=== PATIENT | male | born 1960 | race Caucasian/White ===

== ENCOUNTER → 2017-07-20 | Outpatient (CLI) | payer OTHER ==
[~2017-07-20] MED LIST: CHOL100010 PO; FURO-85 PO; GABA-113 PO; METO25TA56 PO; OMEG10007 PO; OXYC-106 PO
[2017-07-20 13:19] LABS: BASO % 0.2 %; BASO ABS # 0.01 K/uL (0-0.2); EOS % 3.1 %; HEMATOCRIT 44.3 % (42-52); HEMOGLOBIN 14.9 g/dL (14.0-18.0); IG# 0.02 K/uL (0.00-0.02); LYMPH % 35.2 %; LYMPH ABS # 2.25 K/uL (1.2-3.4); MEAN CELL VOLUME 85.7 fL (80-100); MEAN CORPUSCULAR HEMOGLOBIN 28.8 pg (25-34); MEAN CORPUSCULAR HGB CONC 33.6 g/dl (32-36); MEAN PLATELET VOLUME 10.1 fL (7.4-10.4); MONO % 12.5 %; NEUT % 48.7 %; NEUT ABS # 3.12 K/uL (1.4-6.5); PLATELET COUNT 199 K/uL (130-400); RED CELL DISTRIBUTION WIDTH CV 12.7 % (11.5-14.5); RED CELL DISTRIBUTION WIDTH SD 39.7 fL (36.4-46.3)
[2017-07-20 13:54] LABS: BLOOD UREA NITROGEN 17 mg/dl (7-18); CALCIUM 9.6 mg/dl (8.5-10.1); CARBON DIOXIDE 29 mmol/L (21-32); CREATININE 0.89 mg/dl (0.60-1.40); GLUCOSE 93 mg/dl (70-99); POTASSIUM 4.5 mmol/L (3.5-5.1); SODIUM 138 mmol/L (136-145)
== END | disposition home or self-care (01) ==
LOC: C.CPL 12:26
PROVIDERS: ATTEND Orthopaedic Surgery
DX: M25.511 Pain in right shoulder (principal); Z01.812 Encounter for preprocedural laboratory examination; Z01.810 Encounter for preprocedural cardiovascular examination

== ENCOUNTER → 2017-08-09 | Day surgery (SDC) | payer OTHER ==
[2017-07-22 15:55] VITALS: Ht 188 cm; Wt 127.3 kg
[~2017-08-09] VITALS: Ht 188 cm; Wt 127.3 kg
[~2017-08-09] MED LIST changes: +ATROPINE SULFATE 0.1 MG/ML 5ML SYR IV PRN; +BUPIVACAINE 0.25% 30 ML VIAL ONE; +CEFAZOLIN 3000MG IV PUSH 22.5 ML IV SCH; +EpHEDrine SULFATE INJ 50 MG/ML AMP IV PRN; +EpHEDrine SULFATE INJ 50 MG/ML AMP ONE; +EpINEphrine INJ 1MG/ML AMP 1 MG/ML AMP ONE; +FENTANYL CITRATE INJ 50 MCG/1 ML 2 ML VIAL IV PRN; +FENTANYL CITRATE INJ 50 MCG/1 ML 2 ML VIAL ONE; +HYDROmorphone INJ 1 MG/ML SYR IV PRN; +KETO10TA PO; +LACTATED RINGER'S 1000ML 1,000 ML IV SCH; +LIDOCAINE HCL 2% 2 ML VIAL (20MG/ML) ONE; +METOCLOPRAMIDE HCL INJ 5 MG/ML 2 ML VIAL IV PRN; +MIDAZOLAM HCL 1 MG/ML 2ML VIAL ONE; +ONDANSETRON INJ 2 MG/ML 2 ML VIAL IV PRN; +ONDANSETRON INJ 2 MG/ML 2 ML VIAL ONE; +OXYCODONE/ACETAMINOPHEN 5-325 TAB PO PRN; +PROMETHAZINE HCL INJ 12.5 MG in SODIUM CHLORIDE 0.9% 50ML 50 ML IV PRN; +PROPOFOL IV EMULSION 10 MG/ML 20 ML VIAL IV ONE; +ROPIVACAINE 0.5% 5 MG/ML 30 ML VIAL ONE; +SODIUM CHLORIDE 0.9% 1000ML 1,000 ML IV SCH; +SODIUM CHLORIDE 0.9% INJ 10 ML VIAL ONE; +SUCCINYLCHOLINE CHLORIDE 20 MG/ML 10 ML VIAL IV ONE
--- NOTE | 2017-08-09 06:40 | Discharge Instructions ---
Discharge Instructions Date of Service Aug 09, 2017. Visit Reason for Visit: Right Shoulder Full Thickness Rotator Cuff Tear Discharge Discharge Diagnosis / Problem: as above Discharge Goals Goal(s): Decrease discomfort, Improve function Activity Recommendations Activity Limitations: as noted below Anesthesia . Post Anesthesia Instructions: If you have had General Anesthesia or IV Sedation: * Do not drive today. * Resume driving when surgeon permits. * Do not make important decisions or sign legal documents today. * Call surgeon for: 1. Temperature elevations greater than 101 degrees F. 2. Uncontrollable pain. 3. Excessive bleeding. 4. Persistent nausea and vomiting. 5. Medication intolerance (nausea, vomiting or rash). * For nausea and vomiting use only clear liquids such as: tea, soda, bouillon until nausea subsides, then gradually increase diet as tolerated. * If you have any concerns or questions, call your surgeon's office. If physician is unavailable and it is an emergency, call 911 or go to the nearest emergency room. . Instructions / Follow-Up Instructions / Follow-Up follow instructions from our office, may shower in 48 hours, follow-up with Dr Martinez in 2 weeks Diet Recommendations Recommended Home Diet: no limitations, resume previous diet Pending Studies Studies pending at discharge: no Medical Emergencies . Who to Call and When: Medical Emergencies: If at any time you feel your situation is an emergency, please call 911 immediately. . Non-Emergent Contact Non-Emergency issues call your: Surgeon Call Non-Emergent contact if: wound has increased drainage, wound has increased redness . . "Provider Documentation" section prepared by Haris Martinez. .
--- NOTE | 2017-08-09 11:41 | History & Physical Bridge - [place] ---
H&P Re-Evaluation Bridge Note: I have examined the patient, reviewed the History & Physical and in the interval since the performance of the History & Physical I have noted the following changes of clinical significance: No changes noted
--- NOTE | 2017-08-09 16:32 | [facility] Post Operative Brief Note ---
Immediate Operative Summary Operative Date Aug 09, 2017. Pre-Operative Diagnosis Chronic Rotator Cuff Tear Right Shoulder Post-Operative Diagnosis Same Procedure(s) Performed Right Shoulder Arthroscopy With Superior Capsular Reconstruction Surgeon Dr. Martinez Tar Kettle Runner Surgeon(s) [facility] Estimated Blood Loss 5ml Findings Consistent with Post-Op Diagnosis Specimens None Anesthesia Type General Regional Complication(s) none Disposition Disposition: Recovery Room / PACU
[2017-08-09 17:10] VITALS: TEMP 36.2
[2017-08-09 17:37] VITALS: BP 114/70; PULSE 65; O2SAT 92
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
--- NOTE | 2017-08-09 17:39 | Anesthesia Progress Nt - [facility] ---
Anesthesia Post Op Note Date & Time Aug 09, 2017 at 17:38 Vital Signs Pain Intensity: 0 Vital Signs Past 12 Hours Date Time Temp Pulse Resp B/P (MAP) Pulse Ox O2 Delivery O2 Flow Rate FiO2 08/09/17 17:10 36.2 62 20 106/67 (80) 92 Room Air 08/09/17 17:05 61 14 91 08/09/17 17:05 36.4 61 20 127/64 94 Room Air 08/09/17 17:05 62 14 08/09/17 17:04 62 8 08/09/17 17:04 62 8 94 08/09/17 17:03 127/64 08/09/17 17:02 61 8 08/09/17 17:02 60 8 97 08/09/17 17:01 63 8 08/09/17 17:01 63 8 97 08/09/17 16:58 125/57 08/09/17 16:56 64 24 08/09/17 16:56 66 24 90 08/09/17 16:55 66 17 08/09/17 16:55 65 17 91 08/09/17 16:54 66 20 92 08/09/17 16:54 65 20 08/09/17 16:53 128/65 08/09/17 16:51 121/58 08/09/17 16:49 67 21 08/09/17 16:49 68 21 97 08/09/17 16:48 88/69 08/09/17 16:44 69 21 97 08/09/17 16:44 69 21 08/09/17 16:43 67 17 118/56 97 08/09/17 16:43 67 17 08/09/17 16:38 71 25 118/61 98 08/09/17 16:38 70 25 08/09/17 16:37 74 20 08/09/17 16:37 73 20 98 08/09/17 16:33 117/56 08/09/17 16:32 72 23 117/62 97 08/09/17 16:32 72 23 08/09/17 16:29 36.5 70 16 117/62 97 Mask 10 08/09/17 13:32 0 08/09/17 13:31 0 08/09/17 13:27 103/56 08/09/17 13:26 48 08/09/17 13:26 48 17 98 08/09/17 13:22 102/62 08/09/17 13:21 47 11 98 3/10/22 13:21 47 08/09/17 13:17 104/59 08/09/17 13:16 51 08/09/17 13:16 49 7 98 08/09/17 13:12 102/60 08/09/17 13:11 48 16 98 /10/22 13:11 48 08/09/17 13:07 104/56 08/09/17 13:06 49 08/09/17 13:06 49 14 98 08/09/17 13:02 119/62 08/09/17 13:01 52 31 99 08/09/17 13:01 52 08/09/17 12:58 108/59 08/09/17 12:56 50 08/09/17 12:56 50 6 99 08/09/17 12:52 103/64 08/09/17 12:52 116/74 08/09/17 12:51 53 0 08/09/17 12:05 37.0 52 20 113/68 (83) 94 Room Air Notes Mental Status: alert / awake / arousable, participated in evaluation Pt Amnestic to Procedure: Yes Nausea / Vomiting: adequately controlled Pain: adequately controlled Airway Patency, RR, SpO2: stable & adequate BP & HR: stable & adequate Hydration State: stable & adequate Anesthetic Complications: no major complications apparent Doing well, no complaints. VSS at baseline.
== END | disposition home or self-care (01) ==
LOC: X.SURG 10:43
PROVIDERS: ATTEND Orthopaedic Surgery
DX: M75.101 Unspecified rotator cuff tear or rupture of right shoulder, not specified as traumatic (principal); I10 Essential (primary) hypertension; M19.90 Unspecified osteoarthritis, unspecified site; E66.9 Obesity, unspecified; Z91.030 Bee allergy status